=== PATIENT | female | born 1975 | race Two or more races ===

== ENCOUNTER 2024-08-05 17:29 | Emergency (ER) | payer OTHER ==
[~2024-08-05] VITALS: Ht 157.5 cm; Wt 66.7 kg
[2024-08-05] MEDS ORDERED: FAMOTIDINE/PF 20 MG/2 ML VIAL IV PUSH ONE (18:00)
[2024-08-05] MEDS ORDERED: 0.9 % SODIUM CHLORIDE 1,000 ML IV SCH ×2 (18:00→21:15)
[2024-08-05] MEDS ORDERED: HYOSCYAMINE SULFATE 0.125 MG TAB.SUBL SL ONE (18:00)
[2024-08-05 18:41] LABS: HEMATOCRIT 44.6 % (36.0-45.00); HEMOGLOBIN 15.3 g/dL (12.0-15.00); MEAN CELL VOLUME 90.7 fL (80.00-100.00); MEAN CORPUSCULAR HEMOGLOBIN 31.2 pg (27.00-32.0); MEAN CORPUSCULAR HGB CONC 34.4 g/dl (32.0-36.0); PLATELET COUNT 189 K/uL (150-450); RED BLOOD COUNT 4.91 M/uL (4.00-6.00); RED CELL DISTRIBUTION WIDTH 13.1 % (11.5-14.5)
[2024-08-05 19:02] LABS: ALBUMIN 3.4 gm/dL (3.4-5.0); BILIRUBIN TOTAL 0.72 mg/dL (0.3-1.2); CALCIUM 9.2 mg/dL (8.5-10.1); CREATININE SERUM 2.5 mg/dL (0.55-1.02); GFR 20.55; GLOBULINA 4.4 G/DL (2.4-3.5); POTASSIUM 3.51 mEq/L (3.5-5.1); TOTAL PROTEIN 7.8 gm/dL (6.4-8.2)
[2024-08-05] MEDS ORDERED: MEPERIDINE HCL 25 MG/ML AMPUL IV ONE (21:15)
[2024-08-05] MEDS ORDERED: ONDANSETRON HCL 2 MG/ML VIAL ONE (21:15)
[2024-08-05] MEDS ORDERED: METRONIDAZOLE/SODIUM CHLORIDE 500 MG/100 ML PIGGYBACK IV ONE ×2 (21:15)
[2024-08-05] MEDS ORDERED: ONDANSETRON HCL 2 MG/ML VIAL IV STA (21:19)
[2024-08-06] MEDS ORDERED: DIPHENOXYLATE HCL/ATROPINE 1 UDTAB TABLET PO STA (00:30)
[2024-08-06 03:51] LABS: CALCIUM 8.5 mg/dL (8.5-10.1); CREATININE SERUM 2.02 mg/dL (0.55-1.02); GFR 26.29; POTASSIUM 3.6 mEq/L (3.5-5.1)
== END 2024-08-06 08:14 | disposition home or self-care (01) ==
LOC: ER 17:29
PROVIDERS: Emergency Medicine
DX: K52.9 Noninfective gastroenteritis and colitis, unspecified (principal); E86.0 Dehydration; R14.3 Flatulence; Z88.8 Allergy status to other drugs, medicaments and biological substances